=== PATIENT | female | born 1985 | race Hispanic/Latino ===

== ENCOUNTER 2017-05-27 08:12 | Day surgery (SDC) | payer OTHER ==
[2017-05-27] MEDS ORDERED: Succinylcholine 200 mg/10 ml Inj IV ONE (08:56)
[2017-05-27] MEDS ORDERED: Ropivacaine 0.5% 30ML IV ONE (08:56)
[2017-05-27] MEDS ORDERED: Lidocaine 4% (Laryng-O-Jet) Kit MM ONE (08:56)
[2017-05-27] MEDS ORDERED: Propofol 10 mg/ml Inj (20 ML) ONE (08:56)
[2017-05-27] MEDS ORDERED: Midazolam 2 MG/2 ML VIAL ONE ×2 (08:56→10:02)
[2017-05-27] MEDS ORDERED: Bupivacaine HCl 0.5% PF (10 ml) Inj ONE (08:56)
[2017-05-27 09:01] VITALS: BMI 26.2
[2017-05-27] MEDS ORDERED: Bupivacaine 0.5% Inj(30mL) ONE (09:16)
[2017-05-27] MEDS ORDERED: Lidocaine 1% w Epi 1:100,000 Inj ONE (09:16)
[2017-05-27] MEDS ORDERED: Lidocaine 1% Inj (20ml) ONE (09:16)
[2017-05-27] MEDS ORDERED: Lactated Ringer's 1,000 ML IV ONE ×2 (10:01→11:53)
[2017-05-27] MEDS ORDERED: ePHEDrine 50 mg/ml Inj ONE (10:02)
[2017-05-27] MEDS ORDERED: Dexamethasone 4 mg/1 ml ONE (10:14)
[2017-05-27] MEDS ORDERED: Sodium Chloride 0.9% 1,000 ML IV ONE ×2 (11:53→12:25)
[2017-05-27] MEDS ORDERED: Liquid Adhesive TOP ONE ×2 (11:57→12:13)
--- NOTE | 2017-05-27 12:29 | PCM.SURG1 ---
Surgeon's Initial Post Op Note - Surgeon's Notes Surgeon: Mary Malin MD Music Supervisor: Heath Delgado PA-C Type of Anesthesia: General Endo, Block Regional Pre-Operative Diagnosis: Left ankle ATFL and peroneal brevis tear Operative Findings: see op report Post-Operative Diagnosis: same as pre-op dx Operation Performed: Left ankle arthrscopy, debriedment and synovectomy, open peroneal brevis repair and ATFL repair with Brostrom procedure Specimen/Specimens Removed: none Estimated Blood Loss: EBL {In ML}: 10 Date of Surgery/Procedure: 05/27/17 Time of Surgery/Procedure: 10:30
[2017-05-27] MEDS ORDERED: Oxycodone/Acetaminophen 5/325 mg Tab PO PRN (12:32)
--- NOTE | 2017-05-27 12:32 | PCM.ANESB2 ---
Popliteal Nerve Block - Popliteal Nerve Block Date of Procedure: 05/27/17 Anesthesiologist: Gregg Pre-Procedure Diagnosis: Left ankle pain Post-Procedure Diagnosis: Same Procedure Performed: Popliteal Nerve Block Left - Procedure Popliteal Nerve Block: This procedure was explained to the patient that it is for post-operative pain management. Consent was obtained after a thorough discussion with the patient regarding the benefits and possible complications of local anesthetic block of the sciatic nerve at the popliteal level. The patient was brought to the operating room and standard monitors are applied. Time-out was held with the circulating nurse to confirm the correct surgery and the appropriate block. After applying oxygen by nasal cannula and administering IV Sedation, patient's operative leg was gently raised and supported and the groove in between the biceps femoris and vastus lateralis muscles was carefully palpated. The skin approximately 8cm above the popliteal crease was then marked. The ultrasound transducer was then applied to the posterior thigh approximately 8cm above the popliteal crease in the transverse plane and the sciatic nerve before its division was visualized lateral to the popliteal artery and in between the bicep femoris and semimembranosus/semitendinosus muscles. After identification, the lateral portion of the thigh was prepped with Betadine solution three times and Lidocaine 1% was injected subcutaneously for topical anesthesia. At this point, a # 21 gauge Stimuplex insulated 4 inch needle was inserted into pre-marked area and advanced in a perpendicular direction. The needle was inserted above the ultrasound transducer in-plane towards the sciatic nerve in a [id number] direction. Needle advancement was performed carefully under direct ultrasound visualization. Nerve stimulator was used and dorsiflexion of the foot was elicited at a current of ___0.4__ MA. After repeated negative aspiration, _20____cc of _.5____ % ___ropivacaine was injected. Under ultrasound guidance the local anesthetics were observed surrounding sciatic nerve . The needle was removed intact and sterile dressing was applied. The patient tolerated the popliteal nerve block well with stable vital signs and was subsequently prepared for the surgery. After the surgery was completed. The skin over left medial femoral condyle was prepped. A 25G was inserted perpendicular to the skin, after negative aspiration, 10cc of .5% bupivacaine was injected in a fan-like fashion along the left medial femoral condyle for saphenous nerve block.
[2017-05-27 14:52] VITALS: RESP 18
[2017-05-27] MEDS ORDERED: DiphenhydrAMINE 50 mg/ml Inj IVP ONE (15:32)
[2017-05-27 15:54] VITALS: O2SAT 100
[2017-05-27 18:02] VITALS: BP 102/66; PULSE 76; TEMP 98
--- NOTE | 2017-05-27 22:37 | OP ---
PROCEDURE DATE: 05/27/2017 PREOPERATIVE DIAGNOSES: 1. Left ankle synovitis. 2. Loose bodies. 3. Peroneal tendon tear. 4. Complete anterior talofibular ligament tear. POST-OPERATIVE DIAGNOSES: 1. Left ankle synovitis. 2. Loose bodies. 3. Peroneal tendon tear. 4. Complete anterior talofibular ligament tear. ATTENDING PHYSICIAN: Mary Malin MD SUPERVISOR GRADING: Heath Delgado PA-C ANESTHESIA: General and postoperative nerve block. PROCEDURE: 1. Left ankle arthroscopy, major synovectomy. 2. Removal of cartilaginous loose body. 3. Partial synovectomy. 4. Open peroneal tendon debridement. 5. Brostrom procedure for ankle stabilization using suture anchors and internal brace. EBL: 10 mL. SPECIMENS: None. TOURNIQUET TIME: 80 minutes. COMPLICATIONS: None. DRAINS: None. CLOSURE: Primary. FLUIDS: See anesthesia sheet. INDICATIONS: After failing a course of non-operative therapy, the patient elected to undergo the above procedure. In the office, the risks and possible complications of ankle arthroscopy were discussed in detail with the patient. These risks include but are not limited to continued pain, lack of motion, infection, vascular injury, DVT/PE, nerve injury including superficial peroneal nerve dysfunction, reflex sympathetic dystrophy, compartment syndrome, unforeseen medical and/or anesthesia complications, limb loss, and even . The patient expressed an understanding of the risks and possible benefits of the procedure, and is also aware of the alternatives to surgery. An informed consent was obtained, and was checked immediately pre-op. The patient's ankle injuries requiring surgery are the result of an accident/incident that occurred at work. PROCEDURE: The patient was correctly identified in the holding area and the left ankle was marked with the surgeons initials. The patient was transported to the operating room and placed in the supine position, general anesthesia was obtained, a pre-operative orthopaedic exam revealed grade 2 anterior drawer. Range of motion, dorsiflexion to +5 and plantar flexion to 30. The lower extremity was prepped and draped in the standard fashion. A well-padded tourniquet was applied to the patient's thigh. Time out was completed confirming the correct operative site. Esmarch was used to exsanguinate the leg and tourniquet was inflated to 300 mmHg. A standard anteromedial viewing portals were made, medial to the tibialis anterior tendon with a #11 blade after sub-dermal 1% Lidocaine with Epinephrine injection. The ankle joint was distended with normal saline and epinephrine in a 1:1,000,000 mixture, at an initial pressure of 35 mmHg. The arthroscope was inserted from the anteromedial portal and moved lateral to papi the incision site for anterolateral portal. Extreme care was taken to protect the superficial peroneal nerve. Papi was made just lateral to Peroneus tertius tendon. Using 11 blade, only superficial skin incision was made. Then, using the clamp, deep capsule was dissected and anterolateral portal was created using blunt dissection. The arthroscopic probe was inserted, and all compartments of the ankle were sequentially visualized. FINDINGS: Arthroscopic examination of the ankle revealed: 1. Extensive synovitis of the medial and lateral gutter. 2. 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 3. Cartilaginous loose bodies. 4. Synovitis. The motorized shaver was used to mechanically debride the loose, fibrillated and fragmented chondral edges of the anterior distal tibia and a talar body to a stable border. Extreme care was taken to not disrupt the adjacent chondral surface. The edges of injured chondral area were probed to ensure stability after the shaver was withdrawn from the knee. The motorized shaver was used to perform a synovectomy of the medial and lateral compartments. The hypertrophic synovium was resected with minimal bleeding. No synovial incarceration was noted after synovectomy when the knee was put through a full passive range of motion. At this point, multiple chondral loose bodies were noted in the medial and lateral gutter areas. Using the after-mentioned arthroscopic portals, loose bodies were removed with arthroscopic techniques including graspers and the motorized shaver. The patient's peroneal tendon tear was exposed using a hockey stick incision centering over the distal fibula using a #15 blade. The peroneal brevis tendon was exposed. There was a split tear measuring about 10% of the tendon, which was removed along with accessory muscle belly and later on the overlying fascia was also closed. For ankle stabilization, the torn ATFL tendon was identified along with extensor retinaculum, two SutureTak were placed in the distal fibula for additional stabilization. An internal brace was also used with a 4.75 SwiveLock suture anchor loaded with FiberTape into the talar body was placed using the needles from the SutureTak, ATFL and CFL ligament along with extensor retinaculum. Retinaculum were repaired with foot in dorsiflexion and eversion and for additional fixation, the internal brace was used and additional anchor was placed inside the distal fibula. Afterwards, the ankle was checked for stability and was found to be stable with no subtalar motion. WASHOUT: The medial and lateral gutters were checked for loose bodies. At this point, the ankle was then copiously irrigated utilizing the irrigation solution. Arthroscopic washout was performed with free flowing outflow through the cannula with the arthroscope removed. CLOSURE: Portal closure was then accomplished utilizing sutures, and sterile dressing was applied consisting of Xeroform, 4 x 4's, sterile gauze, and two ABD's with a 6" wecneslao wrap. Anesthesia was reversed and the patient was transferred to the recovery room in stable condition, having tolerated the procedure well. The attending surgeon was scrubbed and present throughout the critical portions of the case, including all of the intra-articular arthroscopic procedures. Post operatively, the patient will be [id number] for 2 weeks with crutches and will utilize my appropriate post arthroscopy protected rehab protocol. The patient will be started on straight leg raising and quadriceps setting exercises in the recovery room. We are going to follow up the patient in the office in 7 to 10 days. During this procedure, I was assisted by Heath Delgado PA-C, who assisted in positioning the patient on the operating room table as well as transferring the patient from the operating room table to the recovery room stretcher. In addition, Heath Delgado PA-C, assisted me during the actual operative procedure by positioning the patient's extremity to allow for easier arthroscopic access to all areas of the joint. The presence of Heath Delgado PA-C, as my operative assistant community director was medically necessary to ensure the utmost safety of the patient in the pre, intra-, and post-operative periods. Mary Malin MD [facility] # [id number]
== END 2017-05-27 18:40 | disposition home or self-care (01) ==
LOC: H.OPSURG 08:12
PROVIDERS: ATTEND Orthopaedic Surgery
DX: M65.872 Other synovitis and tenosynovitis, left ankle and foot (principal); M24.072 Loose body in left ankle; S91.012A Laceration without foreign body, left ankle, initial encounter; X58.XXXA Exposure to other specified factors, initial encounter
CPT/HCPCS: 27871; 29895; 97162; 97530; C1713; J0171; J0330; J1100; J1200; J1885; J2001; J2250; J2405; J2704; J2765; J3010; J7030; J7040; J7120; L1920